=== PATIENT | female | born 1990 | race Caucasian/White ===

== ENCOUNTER 2018-02-14 19:25 | Emergency (ER) | payer SELFPAY ==
[~2018-02-14] VITALS: Ht 160 cm; Wt 52.2 kg
[~2018-02-14 19:25] MED LIST: ACET-9535 PO; BUSP10TA3 PO; DOCU-300 PO; IBUPROFEN
[2018-02-14 19:26] VITALS: BP 126/70
--- NOTE | 2018-02-14 19:31 | NUR ---
PT AMBULATORY TO BR THEN TO ER LOBBY W/ STEADY GAIT IN STABLE CONDITION.
--- NOTE | 2018-02-14 20:15 | NUR ---
PT TAKEN TO BED 6
--- NOTE | 2018-02-14 20:29 | NUR ---
Dr. Marquez evaluating patient at bedside.
[2018-02-14 20:34] LABS: BILIRUBIN,URINE NEGATIVE (NEGATIVE); BLOOD, URINE 2+ (NEGATIVE); LEUKOCYTE ESTERASE ,URINE 1+ (NEGATIVE); NITRITE, URINE POSITIVE (NEGATIVE); UGLUCOSE TRACE (NEGATIVE)
[2018-02-14 20:35] LABS: APPEARANCE,URINE HAZY (CLEAR)
--- NOTE | 2018-02-14 20:35 | NUR ---
PT BIB FAMILY FOR BILATERAL FLANK PAIN X1 WEEK. PT REPORTS PAIN HAS BECOME UNBEARABLE THE PAST 2 DAYS, STATING BURNING/STABBING PAIN AT 10/10. PT REPORTS BURNING WITH URINATION. PT REPORTS N/V STARTING TODAY. PT DENIES FEVER. ER MD TO SEE PT. SAFETY PRECAUTIONS IN PLACE, WILL CONTINUE TO MONITOR.
[2018-02-14 20:36] LABS: COLOR,URINE AMBER (YELLOW)
[2018-02-14] MEDS ORDERED: KETOROLAC 30 MG/ML VIAL IM ONE (20:40)
[2018-02-14] MEDS ORDERED: ONDANSETRON 4 MG ODT PO ONE (20:40)
[2018-02-14] MEDS ORDERED: cefTRIAXone 1,000 MG in LIDOCAINE MPF 1% - 5 mL VIAL 2.1 ML IM ONE (20:40)
[2018-02-14 21:09] LABS: RBC,URINE 11-20 (MOD) /HPF (0-5); WBC,URINE 80-100 /HPF (0-5)
[2018-02-14 21:30] VITALS: BP 125/73
--- NOTE | 2018-02-14 21:31 | NUR ---
Patient discharged with v/s stable. Written and verbal after care instructions given and explained. Patient alert, oriented and verbalized understanding of instructions. Ambulatory with steady gait. All questions addressed prior to discharge. ID band removed. Patient advised to follow up with PMD. Rx of Motrin, Bactrim, and Zofran given. Patient educated on indication of medication including possible reaction and side effects. Opportunity to ask questions provided and answered.
== END 2018-02-14 21:31 | disposition home or self-care (01) ==
LOC: MED 19:25
DX: N39.0 Urinary tract infection, site not specified (principal); R11.10 Vomiting, unspecified; Z79.899 Other long term (current) drug therapy
CPT/HCPCS: 81001; 81025; 87086; 87186; 96372; 99283; J0696; J1885; J2001; Q0162

== ENCOUNTER 2018-03-24 21:30 | Emergency (ER) | payer SELFPAY ==
[~2018-03-24] VITALS: Ht 160 cm; Wt 52.2 kg
[2018-03-24 21:47] VITALS: BP 118/60
--- NOTE | 2018-03-24 21:49 | NUR ---
TO LOBBY A/W BED, AMBULATORY, ERMMychal NOTED
--- NOTE | 2018-03-24 22:38 | NUR ---
PT TAKEN TO BED 11
[2018-03-24] MEDS ORDERED: NACL 0.9% 1,000 ML IV ONE (22:40)
[2018-03-24] MEDS ORDERED: KETOROLAC 30 MG/ML VIAL IVP ONE (22:40)
[2018-03-24] MEDS ORDERED: ONDANSETRON 4 MG/2 ML VIAL IVP ONE (22:40)
--- NOTE | 2018-03-24 22:40 | NUR ---
PATIENT PRESENTED ER WITH C/O N/V AND EAR PAIN BILATERAL X 2 DAYS. PT HAS HAD NO RELIEF FROM VOMITING. PATIENT STATES PAIN OF 8/10 AT THIS TIME IN HER EARS; VSS; PATIENT POSITIONED FOR COMFORT; HOB ELEVATED; BEDRAILS UP X2; BED DOWN. ER MD MADE AWARE OF PT STATUS. KNA AND MEDICAL HX IS GALLBLADDER REMOVAL MOM AT BEDSIDE.
--- NOTE | 2018-03-25 00:19 | NUR ---
Dr. Holguin evaluating patient at bedside.
[2018-03-25] MEDS ORDERED: MORPHINE SULFATE 4 MG/ML SYR IVP ONE (00:20)
[2018-03-25] MEDS ORDERED: PROMETHAZINE 25 MG/ML VIAL IVP ONE (00:20)
[2018-03-25] MEDS ORDERED: PENICILLIN G BENZATHINE L-A 1.2 MU/2 ML SYR IM ONE (00:30)
[2018-03-25 01:35] VITALS: BP 116/64
--- NOTE | 2018-03-25 01:35 | NUR ---
Patient discharged with v/s stable. Written and verbal after care instructions given and explained. Patient alert, oriented and verbalized understanding of instructions. Ambulatory with steady gait. All questions addressed prior to discharge. ID band removed. Patient advised to follow up with PMD. Rx of PRENISONE, CIPRO, MOTRIN, ZOFRAN, AND NORCO given. Patient educated on indication of medication including possible reaction and side effects. Opportunity to ask questions provided and answered.
== END 2018-03-25 01:35 | disposition home or self-care (01) ==
LOC: MED 21:30
DX: N39.0 Urinary tract infection, site not specified (principal); J02.0 Streptococcal pharyngitis
CPT/HCPCS: 96361; 96372; 96374; 96375; 99283; J0561; J1885; J2270; J2405; J2550; J7030

== ENCOUNTER 2020-09-23 09:05 | Emergency (ER) | payer SELFPAY ==
[~2020-09-23] VITALS: Ht 157.5 cm; Wt 61.2 kg
[2020-09-23 09:21] VITALS: BP 160/116
--- NOTE | 2020-09-23 09:28 | NUR ---
TENT 3
--- NOTE | 2020-09-23 09:37 | NUR ---
BIB SELF C/O 7/10 SORE THROAT X 1 WEEKS. GOT COVID VACCINE X2 DOSES. BP 160/116 AT THIS TIME DENIES DIZZINESS OR HEADACHE. PMH: GALL BLADDER REMOVAL
--- NOTE | 2020-09-23 10:29 | NUR ---
COVID NOVEL AND STREP SWAB COLLECTED. RN HANDED OVER TO CHICKEN TENDER
[2020-09-23 11:26] VITALS: BP 155/73
--- NOTE | 2020-09-23 11:26 | NUR ---
Patient discharged with v/s stable. Written and verbal after care instructions ABOUT VIRAL RESPIRATORY INFECTION AND SORE THROAT given and explained. Patient verbalized understanding. Ambulatory with steady gait. All questions addressed prior to discharge. Advised to follow up with PMD.
== END 2020-09-23 11:26 | disposition home or self-care (01) ==
LOC: MED 09:05
DX: B34.9 Viral infection, unspecified (principal); Z20.822 Contact with and (suspected) exposure to COVID-19
CPT/HCPCS: 87081; 99283; U0003

== ENCOUNTER 2021-05-31 21:05 | Emergency (ER) | payer SELFPAY ==
[~2021-05-31] VITALS: Ht 160 cm; Wt 56.7 kg
[2021-05-31 21:13] VITALS: BP 121/48
--- NOTE | 2021-05-31 21:26 | NUR ---
PT TO LOBBY
[2021-05-31] MEDS ORDERED: HYDROcodone/APAP 7.5/325 MG 1 TAB PO ONE (21:30)
--- NOTE | 2021-05-31 22:00 | NUR ---
MEDICATED PER ERMDS ORDER, TOLERATED WELL.
--- NOTE | 2021-05-31 23:00 | NUR ---
PT TO BED 1 W/C ASSISTED
--- NOTE | 2021-05-31 23:10 | NUR ---
aSSUMED PATIENT CARE, HERE FOR CAT BITE ON THE LEFT LATERAL FOOT. NOTED SCRATCH MORGAN, MULTIPLE PUNCTURE WOUNDS, 1/4 LAC ON THE LATERAL AREA. WOUND IRRIGATION DONE
[2021-05-31] MEDS ORDERED: KETOROLAC 60 MG/2 ML VIAL IM ONE (23:15)
--- NOTE | 2021-05-31 23:50 | NUR ---
DR. ESTRELLA AT THE BEDSIDE, WOUND APPROXIMATED AND CLOSED WITH DERMABOND, PROCEDURE WELL TOLERATED.
[2021-05-31] MEDS ORDERED: AMOX-1230 PO (23:58)
[2021-05-31] MEDS ORDERED: IBUP-2213 PO (23:58)
--- NOTE | 2021-06-01 00:38 | NUR ---
cLEARED FOR DC WITH ED PROVIDER.
== END 2021-06-01 00:37 | disposition home or self-care (01) ==
LOC: MED 21:05
DX: S91.012A Laceration without foreign body, left ankle, initial encounter (principal); R11.2 Nausea with vomiting, unspecified; R50.9 Fever, unspecified; F12.10 Cannabis abuse, uncomplicated; W55.01XA Bitten by cat, initial encounter; Y93.89 Activity, other specified; Y92.89 Other specified places as the place of occurrence of the external cause; Y99.8 Other external cause status
CPT/HCPCS: 12001; 90471; 90715; 96372; 99284; J1885